=== PATIENT | female | born 1990 | race Caucasian/White ===

== ENCOUNTER 2018-12-05 10:53 | Inpatient (IN) ==
[2018-12-05] MEDS ORDERED: MOTRIN PO PRN (11:55)
[2018-12-05] MEDS ORDERED: NS 1,000 ML IV ONE (11:55)
[2018-12-05] MEDS ORDERED: D5W 1,000 ML IV PRN (11:55)
[2018-12-05] MEDS ORDERED: ZOFRAN ODT PO PRN (11:55)
[2018-12-05] MEDS ORDERED: DESYREL PO PRN (11:55)
[2018-12-05] MEDS ORDERED: TUBERSOL ID ONE (11:55)
[2018-12-05] MEDS ORDERED: TYLENOL PO PRN (11:55)
[2018-12-05] MEDS ORDERED: PHENOBARBITAL IV PRN (11:55)
[2018-12-05] MEDS ORDERED: SENOKOT PO PRN (11:55)
[2018-12-05] MEDS ORDERED: ZOFRAN IV PRN (11:55)
[2018-12-05] MEDS ORDERED: IMODIUM PO PRN (11:55)
[2018-12-05] MEDS ORDERED: MAALOX PLUS LIQUID PO PRN (11:55)
[2018-12-05] MEDS ORDERED: DULCOLAX PR PRN (11:55)
[2018-12-05] MEDS ORDERED: SUBUTEX SL SCH (12:00)
[2018-12-05 12:26] LABS: HEMATOCRIT 35.3 % (37.0-47.0); HEMOGLOBIN 11.5 g/dL (12.0-16.0); MCHC 32.6 g/dL (33-37); MCV 85.9 FL (81-99); MPV 8.9 FL (7.4-10.4); RBC 4.11 XMIL (4.2-5.4); RDW 14.1 % (11.5-14.5); WBC 9.3 X1000 (4.8-10.8)
[2018-12-05 12:48] LABS: AMYLASE 55 U/L (20-200); LIPASE 28 U/L (13-60)
[2018-12-05 12:53] LABS: INR 0.91; PROTIME 12.7 Seconds (11.0-16.0)
[2018-12-05 13:02] LABS: AGAP 12; ALBUMIN 3.3 g/dL (3.5-5.0); ALKALINE PHOSPHATASE 74 U/L (32-104); BUN 6 mg/dL (8-22); CALCIUM 9.2 mg/dL (8.8-10.2); CHLORIDE 104 mmol/L (98-107); COSMO 276; CREATININE 0.4 mg/dL (0.5-0.9); ESTIMATED GFR > 60; GLUCOSE 86 mg/dL (70-104); GOT 56 U/L (10-30); GPT 115 U/L (10-36); POTASSIUM 4.1 mmol/L (3.5-5.1); SODIUM 140 mmol/L (136-145); TCO2 24 mmol/L (25-35); TOTAL BILIRUBIN < 0.15 mg/dL (0.20-1.00); TOTAL PROTEIN 6.7 g/dL (6.3-8.3)
[2018-12-05 13:49] LABS: UR AMPHETAMINES QUAL NONE DETECTED (NONE DETECT); UR BARBITUATES QUAL NONE DETECTED (NONE DETECT); UR BENZODIAZEPIN QUAL NONE DETECTED (NONE DETECT); UR CANNABINOIDS QUAL NONE DETECTED (NONE DETECT); UR COCAINE QUAL NONE DETECTED (NONE DETECT); UR METHADONE QUAL NONE DETECTED (NONE DETECT); UR METHAMPHETAMINE QUAL NONE DETECTED (NONE DETECT); UR OPIATES QUAL NONE DETECTED (NONE DETECT); UR OXYCODONE QUAL NONE DETECTED (NONE DETECT); UR PCP QUAL NONE DETECTED (NONE DETECT); UR PROPOXYPHENE QUAL NONE DETECTED (NONE DETECT); UR TCA QUAL NONE DETECTED (NONE DETECT)
[2018-12-05 15:44] LABS: URINE SOURCE CLEAN CATCH
[2018-12-05 16:04] LABS: BILIRUBIN URINE NEGATIVE (NEGATIVE); BLOOD URINE NEGATIVE (NEGATIVE); CLARITY CLEAR (CLEAR); COLOR YELLOW; GLUCOSE URINE NEGATIVE (NEGATIVE); KETONE URINE NEGATIVE (NEGATIVE); LEUKOCYTES URINE NEGATIVE (NEGATIVE); NITRITE URINE NEGATIVE (NEGATIVE); PROTEIN URINE NEGATIVE (NEGATIVE); SP GRAVITY URINE 1.015; UROBILINOGEN URINE NORMAL
[2018-12-05] MEDS: NICODERM PATCH TD PRN (16:06)
[2018-12-05] MEDS: SUBUTEX SL SCH (16:13)
[2018-12-05] MEDS: ATARAX PO PRN (21:39)
[2018-12-05] MEDS: SEROQUEL PO PRN (21:46)
[2018-12-06] MEDS: PROTONIX PO SCH (07:33)
[2018-12-06] MEDS: SUBUTEX SL SCH ×3 (09:16→16:16)
[2018-12-06] MEDS: FOLIC ACID PO SCH (09:17)
[2018-12-06] MEDS: VITAMIN B-1 PO SCH (09:17)
[2018-12-06] MEDS: THERA M PLUS PO SCH (09:17)
[2018-12-06] MEDS: NICODERM PATCH TD PRN (18:16)
[2018-12-06] MEDS: ATARAX PO PRN (21:49)
[2018-12-06] MEDS: SEROQUEL PO PRN (21:50)
[2018-12-07] MEDS: SUBUTEX SL SCH ×3 (00:19→20:41)
[2018-12-07] MEDS: PROTONIX PO SCH (07:31)
[2018-12-07] MEDS: VITAMIN B-1 PO SCH (09:27)
[2018-12-07] MEDS: THERA M PLUS PO SCH (09:27)
[2018-12-07] MEDS: FOLIC ACID PO SCH (09:27)
[2018-12-07] MEDS: SEROQUEL PO PRN (20:40)
[2018-12-07] MEDS: ATARAX PO PRN (20:40)
[2018-12-07] MEDS: NICODERM PATCH TD PRN (20:56)
--- NOTE | 2018-12-08 01:07 | PROGRESS NOTE ---
DATE: 12/06/2018 SUBJECTIVE: Patient seen and examined by myself on the . She notes that she is feeling a little bit better. Still having some muscle aches, still does not feel well. Did not sleep well last night. Notes that her tremors have improved. PHYSICAL EXAMINATION: Vital Signs: Reviewed. Temperature 98 degrees, pulse 93, respiratory rate 18, BP 108/62. General: Patient is awake, alert. She is very pleasant to talk with. She is currently in no respiratory distress. HEENT: Normocephalic. Neck: Supple. CARDIOVASCULAR: Regular rate. No murmurs. Chest: Clear. Abdomen: Soft. Extremities: Moves all extremities. Neurologic: No changes. ASSESSMENT: 1. Nausea and vomiting. 2. Abdominal pain. 3. Myalgias. 4. Paresthesias. 5. Paroxysmal sweating. 6. Opiate abuse, withdrawal and stabilization. 7. . PLAN: We will continue patient in the hospital. Continue Subutex. Continue to attempt to wean down to 4 mg twice daily. Continue counseling. Further orders as needed. cc: William Ontiveros MD
--- NOTE | 2018-12-08 01:25 | PROGRESS NOTE ---
DATE: 12/07/2018 SUBJECTIVE: Patient notes that she is feeling a lot better. States her muscle aches are improved. She slept better last night. She is eager to eat breakfast this morning. Muscle aches and tremors also improved. PHYSICAL EXAMINATION: Vital Signs: Reviewed. She is afebrile. She is very pleasant to talk with. Temperature 98.2 degrees, pulse 87, respiratory 20, BP 113/60. General: Patient is awake, alert, very pleasant to talk with. HEENT: Normocephalic. Neck: Supple. CARDIOVASCULAR: Regular rate. Chest: Clear. Abdomen: Soft. Extremities: Moves all extremities. Neurologic: No focal changes. ASSESSMENT: 1. Nausea and vomiting. 2. Abdominal pain. 3. Myalgias. 4. Paresthesias. 5. Paroxysmal sweating. 6. Opiate abuse, withdrawal and stabilization. 7. . PLAN: Continue patient in the hospital. Continue to follow. Continue Subutex taper. We will attempt to decrease down to 4 mg twice a day today. If she tolerates, we will discharge home over the next day or two. cc: William Ontiveros MD
[2018-12-08] MEDS: PROTONIX PO SCH (06:07)
[2018-12-08 08:35] VITALS: BP 102/59
[2018-12-08] MEDS: SUBUTEX SL SCH (09:44)
[2018-12-08] MEDS: VITAMIN B-1 PO SCH (09:45)
[2018-12-08] MEDS: THERA M PLUS PO SCH (09:45)
[2018-12-08] MEDS: FOLIC ACID PO SCH (09:45)
--- NOTE | 2018-12-09 16:18 | HISTORY AND PHYSICAL ---
CHIEF COMPLAINT: Nausea and vomiting. HISTORY OF PRESENT ILLNESS: The patient is a 28-year-old female who presented to [facility] secondary to nausea, vomiting, abdominal pain, tremors, myalgias. She states that she has been using and abusing opiates. She states that she knew she needed to stop but had not really been eager to stop until she found out that she was . FAMILY HISTORY: Noncontributory. SOCIAL HISTORY: Patient is single, she is unemployed, lives at home in [place]. PAST MEDICAL HISTORY: The patient has no chronic medical problems although she does have a history of miscarriage x2. MEDICATIONS: No current prescription medications. ALLERGIES: No known drug allergies. REVIEW OF SYSTEMS: CIWA score is 12 secondary to nausea, vomiting, abdominal pain, tremors, myalgias, frequent temperature changes, hot and cold chills, paroxysmal sweating. Denies any headaches, blurred vision, change in vision. Does have generalized weakness, denies any focal weakness, denies any skin rashes. SUBSTANCE ABUSE HISTORY: The patient was in [facility] for 21 days in 2011 for meth and opiates, remained sober for 8 months. She again was back in [facility] in 2014, and then went to a snf house for 5 months and remained sober for approximately 2 years. She started using marijuana at age 15 and used for 4 months. She started ? at age 18, had not used for 6 months, started opiates at age 24. Currently is using IV heroin daily. She started smoking at age 24. PHYSICAL EXAMINATION: VITAL SIGNS: Reviewed and stable. GENERAL: She is awake, alert. She is in no current respiratory distress. HEENT: Normocephalic. NECK: Supple. CARDIOVASCULAR: Regular rate. No murmurs. CHEST: Clear and nonlabored. ABDOMEN: Soft. EXTREMITIES: Moves all extremities. NEUROLOGIC: No focal changes. SKIN: Warm and dry. No rashes. ASSESSMENT: 1. Nausea and vomiting. 2. Abdominal pain. 3. Myalgias. 4. Paresthesias. 5. Paroxysmal sweating. 6. Opiate abuse withdrawals for several days. 7. Chronic tobacco abuse. 8. Chronic polysubstance abuse. 9. First trimester . PLAN: 1. We will continue patient in the hospital. 2. Place her on Subutex due to her . 3. We will begin counseling. 4. Discussed cessation of as well as stopping smoking. Will use a nicotine patch for now. 5. We will continue to follow. Further orders as needed. cc: William Ontiveros MD MTDD
--- NOTE | 2018-12-09 20:02 | DISCHARGE SUMMARY ---
ADMISSION DATE: 12/05/2018 DISCHARGE DATE: 12/08/2018 DISCHARGE DIAGNOSES: 1. Nausea and vomiting. 2. Abdominal pain. 3. Myalgias. 4. Paresthesias. 5. Paroxysmal sweating. 6. Opioid use withdrawal and stabilization. 7. Polysubstance abuse and withdrawal. 8. Chronic tobacco abuse. 9. First trimester . CONSULTATIONS: None. PROCEDURES: None. BRIEF HOSPITAL COURSE: The patient is a 28-year-old female who presented to [facility] secondary to nausea, vomiting, abdominal pain, tremors, and myalgias. She was admitted and treated in the usual fashion. She was placed on Subutex due to her . Counselling was performed on this day by myself. Thankfully, she has had an uneventful hospital course. DISPOSITION: The patient will be discharged home. Thankfully, she has improved. We will continue counselling. Further orders as needed. She will follow up as an outpatient at her treatment facility of choice. Discussed with her and her significant other the importance of avoiding persons, places and situations including each other if they are using and abusing. Discussed outpatient life counselling. Discussed the use of Subutex and the importance of staying at 4 mg twice daily or below due to the . cc: William Ontiveros MD
== END 2018-12-08 11:05 | disposition home or self-care (01) | DRG 832 ==
LOC: P.MEDSURG 12:15
PROVIDERS: ADMIT Family Medicine; ATTEND Family Medicine
CPT/HCPCS: 80053; 80104; 80301; 80305; 80307; 80320; 82055; 82150; 83690; 84703; 85027; 85610; A9270; G0431; G0434; G0477; G0480; G6040; J2405; J7030